=== PATIENT | male | born 1985 | race Two or more races ===

== ENCOUNTER 2019-04-07 16:39 | Inpatient (IN) | payer SELFPAY ==
[~2019-04-07] VITALS: Ht 175.3 cm; Wt 63.1 kg
[2019-04-07] MEDS ORDERED: ASPirin 81 mg TAB PO ONE (17:15)
[2019-04-07] MEDS ORDERED: ACETAMINOPHEN 325 MG TAB PO ONE (17:15)
[2019-04-07 17:59] LABS: Basophils # (auto) 0 uL; Eosinophils # (auto) 0.2 uL; Eosinophils % (auto) 3.5 % (0.0-7.0); Hematocrit 27.5 % (41.0-53.0); Hemoglobin 9.5 g/dL (13.5-17.5); Lymphocytes # (auto) 0.2 uL; Mean Corpuscular Hemoglobin 31.8 pg (28.0-32.0); Mean Corpuscular Hgb Conc. 34.4 g/dL (32.0-36.0); Mean Corpuscular Volume 92.7 fL (80.0-100.0); Monocytes # (auto) 0.5 uL; Monocytes % (auto) 10.6 % (0.0-12.0); Neutrophils # (auto) 3.5 uL; Neutrophils % (auto) 80.9 % (37.0-80.0); Platelet Count (auto) 172 10^3/uL (140-450); Red Blood Cells 2.97 10^6/uL (4.5-5.90); Red Cell Distribution Width 13.7 % (11.8-14.3); White Blood Cell 4.3 10^3/uL (4.4-10.8)
[2019-04-07 18:16] LABS: Albumin 3.8 g/dL (3.4-5.0); Calcium 9.2 mg/dL (8.5-10.1)
[2019-04-07 18:19] LABS: BUN/Creatinine Ratio 4.8; Total Protein 7.5 g/dL (6.4-8.2)
[2019-04-07 18:33] LABS: Bilirubin, Total 0.5 mg/dL (0.2-1.0)
[2019-04-07] MEDS ORDERED: ONDANSETRON HCL 4 MG/2 ML VIAL IV PRN (21:00)
[2019-04-07] MEDS ORDERED: cloNIDine HCL 0.1 MG TAB PO PRN (21:00)
[2019-04-07] MEDS ORDERED: ACETAMINOPHEN 325 MG TAB PO PRN (21:00)
[2019-04-07] MEDS ORDERED: TEMAZEPAM 15 MG CAP PO PRN (21:00)
[2019-04-07] MEDS ORDERED: MORPHINE SULF INJ 2 MG/ML SYRINGE 1ML IV PRN (21:30)
[2019-04-07] MEDS ORDERED: NITROGLYCERIN 0.4 MG SL TAB SL PRN (21:30)
[2019-04-07] MEDS ORDERED: ENOXAPARIN SOD 100 MG/1 ML SYRINGE SC ONE (22:30)
[2019-04-08] MEDS ORDERED: diphenhdrAMINE HCL 50 MG/1 ML VL IV ONE
[2019-04-08 06:08] LABS: Basophils # (auto) 0 uL; Basophils % (auto) 0.9 % (0.0-2.0); Eosinophils # (auto) 0.1 uL; Eosinophils % (auto) 1.4 % (0.0-7.0); Hematocrit 25.3 % (41.0-53.0); Hemoglobin 8.9 g/dL (13.5-17.5); Lymphocytes # (auto) 0.3 uL; Lymphocytes % (auto) 7.3 % (10.0-50.0); Mean Corpuscular Hemoglobin 32.5 pg (28.0-32.0); Mean Corpuscular Hgb Conc. 35.2 g/dL (32.0-36.0); Mean Corpuscular Volume 92.4 fL (80.0-100.0); Monocytes # (auto) 0.5 uL; Monocytes % (auto) 12.6 % (0.0-12.0); Neutrophils # (auto) 3.1 uL; Neutrophils % (auto) 77.8 % (37.0-80.0); Platelet Count (auto) 148 10^3/uL (140-450); Red Blood Cells 2.74 10^6/uL (4.5-5.90); Red Cell Distribution Width 13.7 % (11.8-14.3)
[2019-04-08 06:22] LABS: BUN/Creatinine Ratio 5.1; Potassium 5.4 mmol/L (3.5-5.1)
[2019-04-08 09:00] VITALS: BP 155/99
[2019-04-08] MEDS ORDERED: CALC0.5C (09:07)
[2019-04-08] MEDS ORDERED: CLON0.3D4 (09:07)
[2019-04-08] MEDS ORDERED: DILT180C52 (09:07)
[2019-04-08] MEDS ORDERED: CAR3125T PO (09:41)
[2019-04-08] MEDS ORDERED: ASPirin 81 mg TAB PO SCH (10:00)
[2019-04-08] MEDS ORDERED: SUCR5CHW PO (11:55)
[2019-04-08] MEDS: PANTOPRAZOLE 40 MG TAB PO SCH (11:56)
[2019-04-08] MEDS: SEVELAMER 800 MG TAB PO SCH ×3 (11:57→18:00)
[2019-04-08 13:00] VITALS: BP 163/108
[2019-04-08] MEDS ORDERED: guaiFENesin-DM 100/10mg/5ml SYR PO PRN (14:00)
[2019-04-08] MEDS ORDERED: SODIUM CHLORIDE 0.9% 1,000 ML IV SCH (14:00)
[2019-04-08] MEDS ORDERED: AZITHROMYCIN 500MG/ 250ML 250 ML IV ONE (14:00)
[2019-04-08] MEDS ORDERED: hydrALAZINE HCL 20 MG/ML VL IV PRN (14:00)
[2019-04-08] MEDS ORDERED: cefTRIAXone 1GM/50ML D5W 50 ML IV ONE (14:00)
[2019-04-08] MEDS ORDERED: SODIUM CHLORIDE 0.9% 1,000 ML IV ONE (14:45)
[2019-04-08] MEDS: SODIUM ZIRCONIUM CYCL 10 GM PAK PO SCH ×2 (15:12→22:00)
[2019-04-08 17:00] VITALS: BP 139/87
[2019-04-08 20:00] VITALS: BP 152/93
[2019-04-08 22:00] VITALS: BP 152/93
[2019-04-08] MEDS ORDERED: CARVEDILOL 3.125 MG TAB PO SCH (22:00)
[2019-04-08 22:05] LABS: Urine Bacteria NONE SEEN /hpf (None Seen); Urine Blood 1+ /uL (Negative); Urine Specific Gravity 1.008 (1.001-1.035); Urine WBC <1 /hpf (0 - 3)
[2019-04-08] MEDS: CARVEDILOL 12.5 MG TAB PO SCH (22:40)
[2019-04-08] MEDS: SACUBITRIL-VALSARTAN 24mg/26mg TAB PO SCH (22:41)
[2019-04-09 05:00] VITALS: BP 144/80
[2019-04-09] MEDS: SODIUM ZIRCONIUM CYCL 10 GM PAK PO SCH (06:00)
[2019-04-09 06:37] LABS: Basophils # (auto) 0 uL; Basophils % (auto) 0.9 % (0.0-2.0); Eosinophils # (auto) 0 uL; Eosinophils % (auto) 0.6 % (0.0-7.0); Hematocrit 24.5 % (41.0-53.0); Hemoglobin 8.6 g/dL (13.5-17.5); Lymphocytes # (auto) 0.6 uL; Lymphocytes % (auto) 16.4 % (10.0-50.0); Mean Corpuscular Hemoglobin 32.5 pg (28.0-32.0); Mean Corpuscular Volume 92.8 fL (80.0-100.0); Monocytes # (auto) 0.6 uL; Monocytes % (auto) 16.1 % (0.0-12.0); Neutrophils # (auto) 2.4 uL; Platelet Count (auto) 130 10^3/uL (140-450); Red Blood Cells 2.64 10^6/uL (4.5-5.90); Red Cell Distribution Width 13.5 % (11.8-14.3); White Blood Cell 3.6 10^3/uL (4.4-10.8)
[2019-04-09] MEDS ORDERED: SODIUM CHL 0.9% 1000 ML BAG XX ONE (07:00)
[2019-04-09 07:08] LABS: Calcium 8.8 mg/dL (8.5-10.1); Magnesium 2.9 mg/dL (1.6-2.6); Potassium 5.2 mmol/L (3.5-5.1)
[2019-04-09 07:13] LABS: BUN/Creatinine Ratio 5.2; Phosphorus 6.2 mg/dL (2.5-4.90)
[2019-04-09] MEDS: SEVELAMER 800 MG TAB PO SCH ×3 (08:00→18:34)
[2019-04-09] MEDS ORDERED: ADENOSINE 67 MG in GIVE UN-DILUTED 0 ML IV ONE (09:00)
[2019-04-09 09:28] VITALS: BP 139/79
[2019-04-09 13:00] VITALS: BP 158/91
[2019-04-09] MEDS: SACUBITRIL-VALSARTAN 24mg/26mg TAB PO SCH ×2 (15:20→21:31)
[2019-04-09] MEDS: ASPirin 81 mg TAB PO SCH (15:20)
[2019-04-09] MEDS: cefTRIAXone 1GM/50ML D5W 50 ML IV SCH (15:20)
[2019-04-09] MEDS: CARVEDILOL 12.5 MG TAB PO SCH ×2 (15:21→21:31)
[2019-04-09] MEDS: PANTOPRAZOLE 40 MG TAB PO SCH (15:21)
[2019-04-09] MEDS: AZITHROMYCIN 500MG/ 250ML 250 ML IV SCH (15:21)
[2019-04-09 17:33] VITALS: BP 135/64
[2019-04-09 20:00] VITALS: BP 129/68
[2019-04-09] MEDS ORDERED: EPOETIN ALFA 10,000 UNIT/1 ML VIAL SC ONE (21:00)
[2019-04-09 21:53] VITALS: BP 129/68
[2019-04-10 05:14] VITALS: BP 127/75
[2019-04-10 07:49] LABS: Hematocrit 27.9 % (41.0-53.0); Hemoglobin 9.8 g/dL (13.5-17.5); Mean Corpuscular Hemoglobin 31.9 pg (28.0-32.0); Mean Corpuscular Hgb Conc. 35.1 g/dL (32.0-36.0); Mean Corpuscular Volume 90.8 fL (80.0-100.0); Platelet Count (auto) 153 10^3/uL (140-450); Red Blood Cells 3.08 10^6/uL (4.5-5.90); Red Cell Distribution Width 13.3 % (11.8-14.3); White Blood Cell 2.3 10^3/uL (4.4-10.8)
[2019-04-10 07:54] LABS: BUN/Creatinine Ratio 4.4; Calcium 8.5 mg/dL (8.5-10.1); Potassium 4.8 mmol/L (3.5-5.1)
[2019-04-10 07:59] VITALS: BP 142/87
[2019-04-10 07:59] LABS: Basophils % (manual) 0 (0.0-2.0); Blast Cells 0; Metamyelocytes % 0; Myelocytes % 0; Promyelocytes % 0; Reactive Lymphocytes 0
[2019-04-10 08:40] LABS: Band Neutrophils % (manual) 2; Eosinophils % (manual) 7 (0-7); Lymphocytes % (manual) 30 (10.0-50.0); Monocytes % (manual) 16 (0-12)
[2019-04-10] MEDS: SEVELAMER 800 MG TAB PO SCH ×2 (09:06→12:00)
[2019-04-10] MEDS: cefTRIAXone 1GM/50ML D5W 50 ML IV SCH (09:07)
[2019-04-10] MEDS: AZITHROMYCIN 500MG/ 250ML 250 ML IV SCH (11:02)
[2019-04-10] MEDS: CARVEDILOL 12.5 MG TAB PO SCH (11:02)
[2019-04-10] MEDS: SACUBITRIL-VALSARTAN 24mg/26mg TAB PO SCH (11:02)
[2019-04-10] MEDS: ASPirin 81 mg TAB PO SCH (11:02)
[2019-04-10] MEDS: PANTOPRAZOLE 40 MG TAB PO SCH (11:03)
[2019-04-10 12:36] VITALS: BP 133/91
[2019-04-10] MEDS ORDERED: SODIUM CHL 0.9% 1000 ML BAG XX ONE (13:30)
[2019-04-10] MEDS ORDERED: SACU1TAB PO (15:09)
[2019-04-10] MEDS ORDERED: DOXY-286 PO (15:09)
[2019-04-10] MEDS ORDERED: SEVE800T PO (15:09)
[2019-04-10] MEDS ORDERED: PANT40T PO (15:09)
[2019-04-10] MEDS ORDERED: CAR125T PO (15:09)
[2019-04-10] MEDS ORDERED: ASPI81CH43 PO (15:09)
[2019-04-10 17:00] VITALS: BP 126/74
[2019-04-10] MEDS ORDERED: EPOETIN ALFA 10,000 UNIT/1 ML VIAL SC ONE (21:00)
== END 2019-04-10 17:20 | disposition home or self-care (01) | DRG 871 ==
LOC: ER 16:45 → EDSEX 16:45 → TELE 16:46 → TELE-WESTW 04-08 09:02
PROVIDERS: ADMIT Nurse Practitioner; ATTEND Internal Medicine
PROC: 5A1D70Z Performance of Urinary Filtration, Intermittent, Less than 6 Hours Per Day (ICD-10-PCS; principal; 2019-04-09)
DX: A41.9 Sepsis, unspecified organism (principal); I21.A1 Myocardial infarction type 2; N18.6 End stage renal disease; J96.00 Acute respiratory failure, unspecified whether with hypoxia or hypercapnia; I50.43 Acute on chronic combined systolic (congestive) and diastolic (congestive) heart failure; J18.9 Pneumonia, unspecified organism; I13.2 Hypertensive heart and chronic kidney disease with heart failure and with stage 5 chronic kidney disease, or end stage renal disease; J21.9 Acute bronchiolitis, unspecified; I42.9 Cardiomyopathy, unspecified; D63.1 Anemia in chronic kidney disease; E21.3 Hyperparathyroidism, unspecified; E55.9 Vitamin D deficiency, unspecified; N28.1 Cyst of kidney, acquired; E87.5 Hyperkalemia; I16.0 Hypertensive urgency; I27.20 Pulmonary hypertension, unspecified; Z83.3 Family history of diabetes mellitus; Z99.2 Dependence on renal dialysis; Z87.448 Personal history of other diseases of urinary system
CPT/HCPCS: 36415; 71046; 71250; 74176; 78452; 80048; 80053; 80061; 81001; 82306; 83605; 83735; 83880; 83970; 84100; 84484; 85007; 85025; 85027; 87040; 87070; 87077; 87186; 87205; 87804; 93005; 93017; 93306; 96365; 96367; 96372; G0378; J0153; J0696; J0885; J1642; J2405

== ENCOUNTER 2021-09-08 15:33 | Emergency (ER) | payer MEDICAID ==
[~2021-09-08] VITALS: Ht 175.3 cm; Wt 64.4 kg
[~2021-09-08 15:33] MED LIST: ASPI81CH43 PO; CAR3125T PO; CLON0.3D4; DILT180C52; DOXY-286 PO; PANT40T PO; SACU1TAB PO; SUCR5CHW PO
[2021-09-08 16:13] LABS: Basophils # (auto) 0 10 ^3/uL (0-0.2); Basophils % (auto) 0.5 % (0.0-2.0); Eosinophils # (auto) 0.1 10 ^3/uL (0-0.8); Eosinophils % (auto) 0.9 % (0.0-7.0); Hematocrit 47.5 % (41.0-53.0); Hemoglobin 16.1 g/dL (13.5-17.5); Lymphocytes # (auto) 0.7 10 ^3/uL (0.4-5.4); Lymphocytes % (auto) 8.8 % (10.0-50.0); Mean Corpuscular Hemoglobin 28.9 pg (28.0-32.0); Mean Corpuscular Hgb Conc. 33.8 g/dL (32.0-36.0); Mean Corpuscular Volume 85.5 fL (80.0-100.0); Monocytes # (auto) 0.6 10 ^3/uL (0-1.3); Monocytes % (auto) 7.7 % (0.0-12.0); Neutrophils # (auto) 6.3 10 ^3/uL (1.6-8.6); Neutrophils % (auto) 82.1 % (37.0-80.0); Nucleated Red Blood Cells % 0.1 %; Red Blood Cells 5.55 10^6/uL (4.5-5.90); Red Cell Distribution Width 13.9 % (11.8-14.3); White Blood Cell 7.7 10^3/uL (4.4-10.8)
[2021-09-08 16:18] LABS: Albumin 4.2 g/dL (3.4-5.0); BUN/Creatinine Ratio 15.2; Calcium 10.1 mg/dL (8.5-10.1); Potassium 4.2 mmol/L (3.5-5.1)
[2021-09-08 16:29] LABS: Bilirubin, Total 0.4 mg/dL (0.2-1.0); Total Protein 7.9 g/dL (6.4-8.2)
[2021-09-08 19:13] VITALS: BP 136/93
== END 2021-09-08 19:19 | disposition home or self-care (01) ==
LOC: ER 15:33
DX: R07.89 Other chest pain (principal); Z79.82 Long term (current) use of aspirin; Z79.2 Long term (current) use of antibiotics; Z79.899 Other long term (current) drug therapy; Z91.048 Other nonmedicinal substance allergy status
CPT/HCPCS: 36415; 71045; 80053; 83735; 83880; 84443; 84484; 85025; 93005

== ENCOUNTER 2022-08-11 18:58 | Emergency (ER) | payer MEDICARE, MEDICAID ==
[~2022-08-11] VITALS: Ht 175.3 cm; Wt 62.0 kg
[2022-08-11 20:05] LABS: Eosinophils # (auto) 0.1 10 ^3/uL (0-0.8); Hemoglobin 15.2 g/dL (13.5-17.5); Mean Corpuscular Hemoglobin 30.1 pg (28.0-32.0); Monocytes # (auto) 0.5 10 ^3/uL (0-1.3); Red Blood Cells 5.05 10^6/uL (4.5-5.90)
[2022-08-11 20:09] LABS: Basophils # (auto) 0 10 ^3/uL (0-0.2); Basophils % (auto) 0.4 % (0.0-2.0); Eosinophils % (auto) 0.9 % (0.0-7.0); Hematocrit 43.4 % (41.0-53.0); Lymphocytes % (auto) 10.9 % (10.0-50.0); Mean Corpuscular Volume 85.9 fL (80.0-100.0); Monocytes % (auto) 6.2 % (0.0-12.0); Neutrophils # (auto) 7.2 10 ^3/uL (1.6-8.6); Neutrophils % (auto) 81.6 % (37.0-80.0); Nucleated Red Blood Cells % 0.4 %; Red Cell Distribution Width 13.5 % (11.8-14.3); White Blood Cell 8.8 10^3/uL (4.4-10.8)
[2022-08-11 20:13] LABS: Albumin 4.5 g/dL (3.4-5.0); Calcium 9.5 mg/dL (8.5-10.1); Potassium 4.3 mmol/L (3.5-5.1)
[2022-08-11 20:16] LABS: BUN/Creatinine Ratio 17.2 (10.0-20.0); Bilirubin, Total 0.5 mg/dL (0.2-1.0); Total Protein 7.6 g/dL (6.4-8.2)
[2022-08-11] MEDS ORDERED: SODIUM CHLORIDE 0.9% 1,000 ML IV ONE (22:00)
[2022-08-11 23:00] VITALS: BP 125/87
== END 2022-08-11 23:28 | disposition home or self-care (01) ==
LOC: ER 18:58
DX: R55 Syncope and collapse (principal); R42 Dizziness and giddiness; Z88.8 Allergy status to other drugs, medicaments and biological substances
CPT/HCPCS: 36415; 71045; 80053; 84484; 85025; 93005; 96360; 99285; J7030

== ENCOUNTER 2024-03-17 04:44 | Emergency (ER) | payer MEDICARE, MEDICAID ==
[~2024-03-17] VITALS: Ht 180.3 cm; Wt 100.0 kg
[~2024-03-17 04:44] MED LIST changes: -CAR3125T PO; +CARV-214 PO
[2024-03-17 05:04] LABS: Basophils # (auto) 0 10 ^3/uL (0-0.2); Basophils % (auto) 0.6 % (0.0-2.0); Eosinophils # (auto) 0.1 10 ^3/uL (0-0.8); Eosinophils % (auto) 1.1 % (0.0-7.0); Hematocrit 42.6 % (41.0-53.0); Hemoglobin 14.6 g/dL (13.5-17.5); Lymphocytes # (auto) 0.6 10 ^3/uL (0.4-5.4); Mean Corpuscular Hemoglobin 29.8 pg (28.0-32.0); Mean Corpuscular Hgb Conc. 34.3 g/dL (32.0-36.0); Mean Corpuscular Volume 86.9 fL (80.0-100.0); Monocytes # (auto) 0.9 10 ^3/uL (0-1.3); Monocytes % (auto) 11.5 % (0.0-12.0); Neutrophils # (auto) 6.2 10 ^3/uL (1.6-8.6); Neutrophils % (auto) 78.8 % (37.0-80.0); Platelet Count (auto) 198 10^3/uL (140-450); White Blood Cell 7.9 10^3/uL (4.4-10.8)
--- NOTE | 2024-03-17 05:08 | ED.PDOC ---
HPI Comments 39 year old male brought in by EMS presents to the ED with a chief complaint of chest pain onset today about 1 hour ago. Per EMS, patient's BP was 138/99, all vital signs stable. Patient states he began experiencing LT sided chest pain, non-radiating, sharp pain, rates pain 10/10. Chief Complaint: Chest Pain Time Seen by MD: 05:01 Primary Care Provider: JOAQUINI Reviewed Notes: Medications, Allergies Allergies: Uncoded Allergies: TAPE (Allergy, Unknown, 04/07/19) Home Meds Active Scripts Sacubitril-Valsartan (Entresto 24-26 mg) 1 Tab Tab, 1 TAB PO BID, #60 TAB Prov:JAMIE MARTINEZ MD 04/10/19 Aspirin (Asa) 81 Mg Ch, 81 MG PO DAILY, #30 TAB.CHEW Prov:JAMIE MARTINEZ MD 04/10/19 Pantoprazole Sodium Sesquihydr (Pantoprazole Sodium) 40 Mg Tab, 40 MG PO DAILY, #30 TAB Prov:JAMIE MARTINEZ MD 04/10/19 Doxycycline Hyclate (DOXYCYCLINE HYCLATE) 100 Mg Tab, 1 TAB PO BID, #14 TAB Prov:JAMIE MARTINEZ MD 04/10/19 Reported Medications Polynuclear Iron(III)-Oxyhydro (Velphoro) 500 Mg Chw, 500 MG PO TIDWMEALS, TAB.CHEW 04/08/19 Carvedilol (COREG) 3.125 Mg Tab, PO DAILY, TAB 04/08/19 Clonidine Hydrochloride (Clonidine Hcl) 0.3 Mg/24 Hr Dis 04/08/19 Diltiazem HCl (Cartia Xt) 180 Mg Cap 04/08/19 Information Source: Patient, Emergency Med Personnel Mode of Arrival: EMS Severity: Moderate Timing: Hours Duration: Since onset Prehospital treatment: 12 Lead EKG Location: Chest (L) Radiation: No Radiation Quality: Stabbing Onset: At Rest Cardiac Risk Factors: HTN History of: None Modifying Factors: Nothing Past Medical History PAST MEDICAL HISTORY: HTN Surgical History (Other): kidney transplant Family History Family History: Family hx of DM Social History Smoker: Non-Smoker Alcohol: Denies ETOH Use Drugs: Denies Drug Use Lives In: Home Constitutional: denies: chills, diaphoresis, fatigue, fever, malaise, sweats, weakness, others EENTM: denies: blurred vision, double vision, ear bleeding, ear discharge, ear drainage, ear pain, ear ringing, eye pain, eye redness, hearing loss, mouth pain, mouth swelling, nasal discharge, nose bleeding, nose congestion, nose pain, photophobia, tearing, throat pain, throat swelling, voice changes, others Respiratory: denies: cough, hemoptysis, orthopnea, SOB at rest, shortness of breath, SOB with excertion, stridor, wheezing, others Cardiovascular: reports: chest pain; denies: dizzy spells, diaphoresis, Dyspnea on exertion, edema, irregular heart beat, left arm pain, lightheadedness, palpitations, PND, syncope, others Gastrointestinal: denies: abdomen distended, abdominal pain, blood streaked bowels, constipated, diarrhea, dysphagia, difficulty swallowing, hematemesis, melena, nausea, poor appetite, poor fluid intake, rectal bleeding, rectal pain, vomiting, others Genitourinary: denies: burning, dysuria, flank pain, frequency, hematuria, incontinence, penile discharge, penile sore, pain, testicle pain, testicle swelling, urgency, others Neurological: denies: dizziness, fainting, headache, left sided numbness, left sided weakness, numbness, paresthesia, pre-existing deficit, right sided numbness, right sided weakness, seizure, speech problems, tingling, tremors, weakness, others Musculoskeletal: denies: back pain, gout, joint pain, joint swelling, muscle pain, muscle stiffness, neck pain, others Integumetry: denies: bruises, change in color, change in hair/nails, dryness, laceration, lesions, lumps, rash, wounds, others Allergic/Immunocompromised: denies: Difficulty Healing, Frequent Infections, Hives, Itching, others Hematologic/Lymphatic: denies: anemia, blood clots, easy bleeding, easy bruising, swollen glands, others Endocrine: denies: excessive hunger, excessive sweating, excessive thirst, excessive urination, flushing, intolerance to cold, intolerance to heat, unexplained weight gain, unexplained weight loss, others Psychiatric: denies: anxiety, bipolar disorder, depression, hopeless, panic disorder, schizophrenia, sleepless, suicidal, others All Other Systems: Reviewed and Negative Physical Exam General Appearance: No Apparent Distress, Normal HEENT: Normal ENT Inspection, Pharynx Normal, TMs Normal Neck: Full Range of Motion, Non-Tender, Normal, Normal Inspection Respiratory: Chest Non-Tender, Lungs Clear, No Accessory Muscle Use, No Respiratory Distress, Normal Breath Sounds Cardiovascular: No Edema, No JVD, No Murmur, No Gallop, Normal Peripheral Pulses, Regular Rate/Rhythm Breast Exam: Deferred Gastrointestinal: No Organomegaly, Non Tender, No Pulsatile Mass, Normal Bowel Sounds, Soft Genitalia: Deferred Pelvic: Deferred Rectal: Deferred Extremities: No calf tenderness, Normal capillary refill, Normal inspection, Normal range of motion, Non-tender, No pedal edema Musculoskeletal : Apperance: Normal 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 Was a procedure done?: No CP Differential Dx Differential Diagnosis: Angina, Electrolyte Disorder, Heart Failure, Hypoxia, Pulmonary Embolus, Other Differential Diagnosis: CHF, Other X-Ray, Labs, Meds, VS Vital Signs Date Time Temp Pulse Resp B/P (MAP) Pulse Ox O2 Delivery O2 Flow Rate FiO2 03/17/24 06:25 98.2 88 18 127/88 (101) 95 98.2 03/17/24 05:19 91 15 95 Room Air* 0 21 03/17/24 05:11 99.6 91 15 136/90 (105) 95 99.6 03/17/24 04:48 99.5 90 18 138/99 (112) 96 03/17/24 04:46 89 Lab Test 03/17/24 05:41 03/17/24 04:57 Range/Units Troponin I High Sensitivity 13 13 </=54 ng/L White Blood Count 7.9 4.4-10.8 10^3/uL Red Blood Count 4.90 4.5-5.90 10^6/uL Hemoglobin 14.6 13.5-17.5 g/dL Hematocrit 42.6 41.0-53.0 % Mean Corpuscular Volume 86.9 80.0-100.0 fL Mean Corpuscular Hemoglobin 29.8 28.0-32.0 pg Mean Corpuscular Hemoglobin Concent 34.3 32.0-36.0 g/dL Red Cell Distribution Width 14.0 11.8-14.3 % Platelet Count 198 140-450 10^3/uL Mean Platelet Volume 8.8 6.9-10.8 fL Neutrophils (%) (Auto) 78.8 37.0-80.0 % Lymphocytes (%) (Auto) 8.0 L 10.0-50.0 % Monocytes (%) (Auto) 11.5 0.0-12.0 % Eosinophils (%) (Auto) 1.1 0.0-7.0 % Basophils (%) (Auto) 0.6 0.0-2.0 % Neutrophils # (Auto) 6.2 1.6-8.6 10 ^3/uL Lymphocytes # (Auto) 0.6 0.4-5.4 10 ^3/uL Monocytes # (Auto) 0.9 0-1.3 10 ^3/uL Eosinophils # (Auto) 0.1 0-0.8 10 ^3/uL Basophils # (Auto) 0 0-0.2 10 ^3/uL Nucleated Red Blood Cells 0.0 % Prothrombin Time 10.7 9.3-11.8 sec Prothrombin Time INR 1.01 0.9-1.15 Activated Partial Thromboplast Time 25.8 24.5-34.5 SEC Sodium Level 138 136-145 mmol/L Potassium Level 4.2 3.5-5.1 mmol/L Chloride Level 106 98-107 mmol/L Carbon Dioxide Level 24 20-31 mmol/L Anion Gap 8 5-15 Blood Urea Nitrogen 24 H 9-23 mg/dL Creatinine 1.27 0.700-1.30 mg/dL Glomerular Filtration Rate Calc 73 >90 mL/min BUN/Creatinine Ratio 18.9 10.0-20.0 Serum Glucose 92 74-106 mg/dL Calcium Level 10.6 H 8.7-10.4 mg/dL Magnesium Level 1.9 1.6-2.6 mg/dL Total Bilirubin 0.6 0.2-1.0 mg/dL Aspartate Amino Transferase (AST) 24 13-40 U/L Alanine Aminotransferase (ALT) 52 H 7-40 U/L Alkaline Phosphatase 184 H 46-116 U/L B-Type Natriuretic Peptide 9.51 0-100 pg/mL Total Protein 7.3 5.7-8.2 g/dL Albumin 4.7 3.2-4.8 g/dL Time of 1ST Reevaluation: 05:31 Reevaluation 1ST: Unchanged Patient Education/Counseling: Diagnosis, Treatment, Prognosis Family Education/Counseling: No Family Present Additional Information I reviewed the following notes from patient's past medical encounters: The following tests were ordered, and results were reviewed by me:EKG, EKG, EKG, CBC, CMP, BNP, PTPTT, XY CHEST, MAGNESIUM, TROP, TROP, TROP Additional Information was gathered from interviewing the following independent historians: EMS I reviewed and agreed with the following test results read by other providers: XY CHEST I discussed treatment and results with medical personnel and: patient Departure 1 Departure Time of Disposition: 05:40 Impression: Primary Impression: Atypical chest pain Disposition: HOME / SELF CARE / HOMELESS Condition: Stable Discharged With: Self Critical Care Note Critical Care Time?: No Stability Stability form required: No Heart Score Heart Score: Heart Score Response (Comments) Value History Slightly Suspicious 0 EKG Normal 0 Age <45 0 Risk Factors 1 or 2 risk factors 1 Troponin Normal limit 0 Total 1 I personally scribed for RAJANI BAKER MD ([email or web address]) on 03/17/24 at 05:08. Electronically submitted by Kaye Reynaga ([email or web address]). I personally scribed for RAJANI BAKER MD ([email or web address]) on 03/17/24 at 05:09. Electronically submitted by Kaye Reynaga ([email or web address]). RAJANI BAKER MD Mar 17, 2024 05:08
[2024-03-17 05:19] VITALS: PULSE 91; RESP 15; O2SAT 95
[2024-03-17 05:23] LABS: Alanine Aminotransferase 52 U/L (7-40); Albumin 4.7 g/dL (3.2-4.8); Alkaline Phosphatase 184 U/L (46-116); Anion Gap 8 (5-15); Aspartate Aminotransferase 24 U/L (13-40); BUN/Creatinine Ratio 18.9 (10.0-20.0); Bilirubin, Total 0.6 mg/dL (0.2-1.0); Blood Urea Nitrogen 24 mg/dL (9-23); Calcium 10.6 mg/dL (8.7-10.4); Carbon Dioxide 24 mmol/L (20-31); Chloride 106 mmol/L (98-107); Glucose 92 mg/dL (74-106); Magnesium 1.9 mg/dL (1.6-2.6); Potassium 4.2 mmol/L (3.5-5.1); Sodium 138 mmol/L (136-145); Total Protein 7.3 g/dL (5.7-8.2)
[2024-03-17 05:29] LABS: INR 1.01 (0.9-1.15); Partial Thromboplastin Time 25.8 SEC (24.5-34.5); Prothrombin Time 10.7 sec (9.3-11.8)
[2024-03-17 06:25] VITALS: BP 127/88; PULSE 88; RESP 18; TEMP 98.2; O2SAT 95
--- NOTE | 2024-03-18 12:45 | ECG ---
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
== END 2024-03-17 06:32 | disposition home or self-care (01) ==
LOC: ER 04:44 → EDBD 04:44 → ER 06:22
DX: R07.89 Other chest pain (principal); I10 Essential (primary) hypertension; Z88.8 Allergy status to other drugs, medicaments and biological substances; Z79.899 Other long term (current) drug therapy; Z79.84 Long term (current) use of oral hypoglycemic drugs; Z98.890 Other specified postprocedural states
CPT/HCPCS: 36415; 80053; 83735; 83880; 84484; 85025; 85610; 85730; 93005

== ENCOUNTER 2024-08-20 22:10 | Inpatient (IN) | payer MEDICARE, MEDICAID ==
[~2024-08-20] VITALS: Ht 175.3 cm; Wt 68.4 kg
[2024-08-20 23:30] VITALS: PULSE 107; RESP 16; O2SAT 94
[2024-08-20] MEDS: SODIUM CHLORIDE 0.9% 1,000 ML IV ONE (23:37)
[2024-08-20] MEDS: FAMOTIDINE (10MG/ML) 2ML VL IV ONE (23:41)
[2024-08-20] MEDS: ONDANSETRON HCL 4 MG/2 ML VIAL IV ONE (23:41)
[2024-08-21 00:02] LABS: Basophils # (auto) 0 10 ^3/uL (0-0.2); Basophils % (auto) 0.3 % (0.0-2.0); Eosinophils # (auto) 0 10 ^3/uL (0-0.8); Eosinophils % (auto) 0.4 % (0.0-7.0); Hematocrit 45.4 % (41.0-53.0); Hemoglobin 15.7 g/dL (13.5-17.5); Lymphocytes # (auto) 0.4 10 ^3/uL (0.4-5.4); Lymphocytes % (auto) 3.9 % (10.0-50.0); Mean Corpuscular Hemoglobin 29.4 pg (28.0-32.0); Mean Corpuscular Hgb Conc. 34.6 g/dL (32.0-36.0); Monocytes # (auto) 0.8 10 ^3/uL (0-1.3); Monocytes % (auto) 7.4 % (0.0-12.0); Neutrophils # (auto) 9.6 10 ^3/uL (1.6-8.6); Nucleated Red Blood Cells % 0.1 %; Platelet Count (auto) 220 10^3/uL (140-450); Red Blood Cells 5.34 10^6/uL (4.5-5.90); Red Cell Distribution Width 13.9 % (11.8-14.3); White Blood Cell 10.9 10^3/uL (4.4-10.8)
[2024-08-21 00:18] LABS: Anion Gap 11 (5-15); Aspartate Aminotransferase 24 U/L (13-40); BUN/Creatinine Ratio 15.9 (10.0-20.0); Blood Urea Nitrogen 21 mg/dL (9-23); Calcium 10.1 mg/dL (8.7-10.4); Carbon Dioxide 24 mmol/L (20-31); Lipase 38 U/L (12-53); Potassium 4.7 mmol/L (3.5-5.1); Total Protein 7.7 g/dL (5.7-8.2)
[2024-08-21 00:19] LABS: Bilirubin, Total 0.7 mg/dL (0.2-1.0)
[2024-08-21 00:27] LABS: Alanine Aminotransferase 53 U/L (7-40); Albumin 4.9 g/dL (3.2-4.8); Alkaline Phosphatase 171 U/L (46-116); Chloride 111 mmol/L (98-107); Glucose 121 mg/dL (74-106); Sodium 146 mmol/L (136-145)
[2024-08-21] MEDS: ONDANSETRON HCL 4 MG/2 ML VIAL IV ONE (00:45)
--- NOTE | 2024-08-21 00:46 | ED.PDOC ---
History of Present Illness HPI Comments 39-year-old man with a history of kidney transplant several years ago presents with 2 days of multiple episodes of nonbilious nonbloody emesis as well as multiple episodes of watery brown diarrhea. Patient feels very weak and that he is going to pass out. Patient is concerned that he is unable to tolerate his medications for his kidney transplant. Chief Complaint: Nausea/Vomiting Time Seen by MD: 23:00 Primary Care Provider: UCLoreta Allergies: Uncoded Allergies: TAPE (Allergy, Unknown, 04/07/19) Home Meds Active Scripts Sacubitril-Valsartan (Entresto 24-26 mg) 1 Tab Tab, 1 TAB PO BID, #60 TAB Prov:JAMIE MARTINEZ MD 04/10/19 Aspirin (Asa) 81 Mg Ch, 81 MG PO DAILY, #30 TAB.CHEW Prov:JAMIE MARTINEZ MD 04/10/19 Pantoprazole Sodium Sesquihydr (Pantoprazole Sodium) 40 Mg Tab, 40 MG PO DAILY, #30 TAB Prov:JAMIE MARTINEZ MD 04/10/19 Doxycycline Hyclate (DOXYCYCLINE HYCLATE) 100 Mg Tab, 1 TAB PO BID, #14 TAB Prov:JMAIE MARTINEZ MD 04/10/19 Reported Medications Polynuclear Iron(III)-Oxyhydro (Velphoro) 500 Mg Chw, 500 MG PO TIDWMEALS, TAB.CHEW 04/08/19 Carvedilol (COREG) 3.125 Mg Tab, PO DAILY, TAB 04/08/19 Clonidine Hydrochloride (Clonidine Hcl) 0.3 Mg/24 Hr Dis 04/08/19 Diltiazem HCl (Cartia Xt) 180 Mg Cap 04/08/19 Mode of Arrival: Wheelchair Past Medical History PAST MEDICAL HISTORY: HTN Family History Family History: Family hx of DM Social History Smoker: Non-Smoker Alcohol: Denies ETOH Use Drugs: Denies Drug Use Lives In: Home All Other Systems: Reviewed and Negative Physical Exam General Appearance: Moderate Distress HEENT: Pharynx Normal Neck: Normal Inspection Respiratory: No Respiratory Distress Cardiovascular: Tachycardia Breast Exam: Deferred Gastrointestinal: Non Tender Genitalia: Deferred Pelvic: Deferred Rectal: Deferred Extremities: No pedal edema Neurologic: No Motor Deficits Cerebellar Function: NOT DONE Reflexes: NOT DONE Skin: Other (Dry mucous membranes and pallor) Lymphatic: NOT DONE Was a procedure done? Was a procedure done?: No Differential Dx Considerations may include: Dehydration, electrolyte abnormalities, infectious etiology, viral syndrome X-Ray, Labs, Meds, VS Vital Signs Date Time Temp Pulse Resp B/P (MAP) Pulse Ox O2 Delivery O2 Flow Rate FiO2 08/20/24 23:30 107 16 94 Room Air* 0 21 08/20/24 23:24 99.4 107 16 136/95 (109) 94 99.4 08/20/24 22:10 99.6 118 16 128/91 (103) 97 99.6 Lab Test 08/20/24 23:52 08/20/24 23:35 Range/Units White Blood Count 10.9 H 4.4-10.8 10^3/uL Red Blood Count 5.34 4.5-5.90 10^6/uL Hemoglobin 15.7 13.5-17.5 g/dL Hematocrit 45.4 41.0-53.0 % Mean Corpuscular Volume 85.0 80.0-100.0 fL Mean Corpuscular Hemoglobin 29.4 28.0-32.0 pg Mean Corpuscular Hemoglobin Concent 34.6 32.0-36.0 g/dL Red Cell Distribution Width 13.9 11.8-14.3 % Platelet Count 220 140-450 10^3/uL Mean Platelet Volume 8.4 6.9-10.8 fL Neutrophils (%) (Auto) 88.0 H 37.0-80.0 % Lymphocytes (%) (Auto) 3.9 L 10.0-50.0 % Monocytes (%) (Auto) 7.4 0.0-12.0 % Eosinophils (%) (Auto) 0.4 0.0-7.0 % Basophils (%) (Auto) 0.3 0.0-2.0 % Neutrophils # (Auto) 9.6 H 1.6-8.6 10 ^3/uL Lymphocytes # (Auto) 0.4 0.4-5.4 10 ^3/uL Monocytes # (Auto) 0.8 0-1.3 10 ^3/uL Eosinophils # (Auto) 0 0-0.8 10 ^3/uL Basophils # (Auto) 0 0-0.2 10 ^3/uL Nucleated Red Blood Cells 0.1 % Sodium Level 146 H 136-145 mmol/L Potassium Level 4.7 3.5-5.1 mmol/L Chloride Level 111 H 98-107 mmol/L Carbon Dioxide Level 24 20-31 mmol/L Anion Gap 11 5-15 Blood Urea Nitrogen 21 9-23 mg/dL Creatinine 1.32 H 0.700-1.30 mg/dL Glomerular Filtration Rate Calc 70 >90 mL/min BUN/Creatinine Ratio 15.9 10.0-20.0 Serum Glucose 121 H 74-106 mg/dL Lactic Acid Level 1.8 0.4-2.0 mmol/L Calcium Level 10.1 8.7-10.4 mg/dL Total Bilirubin 0.7 0.2-1.0 mg/dL Aspartate Amino Transferase (AST) 24 13-40 U/L Alanine Aminotransferase (ALT) 53 H 7-40 U/L Alkaline Phosphatase 171 H 46-116 U/L Total Protein 7.7 5.7-8.2 g/dL Albumin 4.9 H 3.2-4.8 g/dL Lipase 38 12-53 U/L POC Glucose 132 H 70-106 mg/dl Current Medications Medications (Trade) Dose Ordered Sig/Radha Route Start Time Stop Time Status Last Admin Sodium Chloride 1,000 ml @ 1,000 mls/hr Q1H ONCE IV 08/20/24 23:45 08/21/24 00:44 08/20/24 23:37 Ondansetron HCl (Zofran) 4 mg ONCE ONCE IV 08/20/24 23:45 08/20/24 23:46 DC 08/20/24 23:41 Famotidine (Pepcid Injection) 20 mg ONCE ONCE IV 08/20/24 23:45 08/20/24 23:46 DC 08/20/24 23:41 Time of 1ST Reevaluation: 00:44 Reevaluation 1ST: Improved Patient Education/Counseling: Diagnosis, Treatment Family Education/Counseling: No Family Present Sepsis Sepsis Reasesment Focused Exam Orders: Laboratory Tests 08/20/24 23:52: Lactic Acid Level 1.8 Departure 1 Departure Time of Disposition: 00:44 (Patient with severe dehydration given patient is high-risk of decompensation from his kidney transplant we will rehydrate patient admit patient for further work up and expert consultation) Impression: Primary Impression: Severe dehydration Additional Impressions: Electrolyte abnormality Epigastric pain Kidney transplant recipient Disposition: ADMITTED INPATIENT Admit to: Med Surg Condition: Serious Critical Care Note Critical Care Time?: Yes Critical care comment: Intractable nausea and vomiting Authorized and Performed by: Carmita Arroyo MD Total critical care time: Approximately 34 minutes Due to a high probability of clinically significant, life threatening deterioration, the patient required my highest level of preparedness to intervene emergently and I personally spent this critical care time directly and personally managing the patient. This critical care time included obtaining a history; examining the patient; pulse oximetry; ordering and review of studies; arranging urgent treatment with development of a management plan; evaluation of patient's response to treatment; frequent reassessment; and, discussions with other providers. This critical care time was performed to assess and manage the high probability of imminent, life-threatening deterioration that could result in multi-organ failure. It was exclusive of separately billable procedures and treating other patients and teaching time. Please see my other sections and the rest of the note for further information on patient assessment and treatment. Stability Stability form required: No Heart Score Heart Score: Heart Score Response (Comments) Value History N/A 0 EKG N/A 0 Age N/A 0 Risk Factors N/A 0 Troponin N/A 0 Total 0 CARMITA ARROYO MD Aug 21, 2024 00:46
[2024-08-21 00:55] LABS: Urine Bacteria None Seen /hpf (None Seen)
--- NOTE | 2024-08-21 00:55 | DVH ---
CHEST RADIOGRAPH Indication: epigastric pain Technique: Single frontal view of the chest was obtained Comparison: XY CHEST XRAY 1 VIEW on DOS: 08/11/22, XY CHEST PORTABLE on DOS: 08/11/22, CHEST XRAY 1 VIE W on DOS: 09/08/21 Findings/ IMPRESSION: Low lung volumes with bronchovascular crowding. Mild cardiomegaly. No focal consolidation or pneumot horax. No pleural effusions.
[2024-08-21 01:25] LABS: Urine Blood Negative /uL (Negative); Urine Clarity Clear (Clear); Urine Color Yellow (Yellow); Urine Mucus FEW (None Seen); Urine Protein, UAD Negative (Negative); Urine Specific Gravity 1.025 (1.001-1.035); Urine Squamous Epithelial Cell None Seen /hpf (<5); Urine Urobilinogen Normal (Negative); Urine WBC < 1 /HPF (0-3)
[2024-08-21] MEDS: LACTATED RINGER'S 500 ML IV ONE (02:33)
[2024-08-21] MEDS: metroNIDAZOLE 500MG/100ML 100 ML IV ONE (02:34)
[2024-08-21] MEDS: ACETAMINOPHEN 325 MG TAB PO PRN (03:07)
[2024-08-21] MEDS: KETOROLAC TROMETH 30 MG/ML 1ML VIAL IV ONE (03:20)
--- NOTE | 2024-08-21 05:54 | DVHHPRES ---
History of Present Illness Resident Creating Document: SERGIO WILDE RESIDENT History of Present Illness This is a 39-year-old male with a past medical history of kidney transplant in May 2020, history of end-stage renal disease hypertension, dyslipidemia, heart failure with reduced ejection fraction presented to the ED with a chief complaint of intractable nausea vomiting and diarrhea. Patient reported he was apparently well until 1 day before presentation and yesterday in the morning around 4:00 a.m. he started to have nausea, vomiting and diarrhea. Patient had multiple episodes of vomiting which was nonbilious nonbloody and diarrhea which was also nonbloody. He reports his to be sick with similar symptoms at home and reportedly there were many people sick with similar symptoms at his 's work place. Patient reports abdominal pain periumbilical, no rebound tenderness, soft abdomen. Patient also reported mild chest pressure but denied any shortness of breath. Past medical history: As per HPI Past surgical history: Kidney transplant in May 2020 Social history: Patient lives with the family and denies smoking, alcohol, drug use Home medications: Lisinopril 2.5 mg, carvedilol 3.125 b.i.d., prednisone 5 mg daily, tacrolimus 1 b.i.d., mycophenolic acid 180 mg, simvastatin Review of Systems Review of Systems Seen and examined at the bedside Reports the last episode of vomiting and diarrhea to happen when he arrived to the hospital about 4 hours ago Mild abdominal pain Allergies: Uncoded Allergies: TAPE (Allergy, Unknown, 04/07/19) Medications Current Medications Medications Dose Ordered Sig/Radha Route Start Time Stop Time Status Last Admin Dose Admin Metronidazole 100 ml @ 100 mls/hr Q8HR IV 08/21/24 14:00 Aspirin 81 mg DAILY PO 08/21/24 10:00 Tacrolimus 1 mg BID PO 08/21/24 10:00 Prednisone 5 mg DAILY PO 08/21/24 10:00 Acetaminophen 650 mg Q6HP PRN PO 08/21/24 03:00 08/21/24 03:07 650 MG Exam Vital Signs Vital Signs Date Time Temp Pulse Resp B/P (MAP) Pulse Ox O2 Delivery O2 Flow Rate FiO2 08/21/24 04:00 98.7 08/21/24 03:00 98 20 132/88 (103) 98 08/20/24 23:30 Room Air* 0 21 Exam Gen - no pallor, no icterus, no cyanosis, no clubbing, no LAD, no edema . Skin - Patients skin is warm and dry. HEENT - normocephalic, atraumatic, moist mucous membranes. Neck - full ROM, no LAD, no JVD Pulmonary - B/L equal breath sounds, no crackles, no wheezing, no stridor. cardiovascular - regular S1,S2 heard, no added sounds, no murmurs heard. peripheral pulses normal radial 2+, pedal 2+. GI - soft abdomen with mild tenderness to palpation around the periumbilical ar ea, no guarding or rebound tenderness. no hepatospleenomegaly. Bowel sounds normoactive Neurological - Patient is A/O X 3 . Bilateral upper extremity strength 5/5, bilateral lower extremity strength 5/5, no facial droop, normal speech, no tremor, no sensory deficiets. Labs/Xrays Labs Test 08/21/24 00:52 08/20/24 23:52 08/20/24 23:35 Range/Units Urine Color Yellow Yellow Urine Clarity Clear Clear Urine pH 6.0 5.0-9.0 Urine Specific [place] 1.025 1.001-1.035 Urine Protein Negative Negative Urine Ketones Trace Negative Urine Blood Negative Negative /uL Urine Nitrite Negative Negative Urine Bilirubin Negative Negative Urine Urobilinogen Normal Negative mg/dL Urine Leukocyte Esterase Negative Negative /uL Urine RBC 1 0 - 3 /hpf Urine Microscopic WBC < 1 0-3 /HPF Urine Squamous Epithelial Cells None seen <5 /hpf Urine Bacteria None seen None Seen /hpf Urine Mucus Few None Seen Urine Glucose Normal Normal mg/dL White Blood Count 10.9 H 4.4-10.8 10^3/uL Red Blood Count 5.34 4.5-5.90 10^6/uL Hemoglobin 15.7 13.5-17.5 g/dL Hematocrit 45.4 41.0-53.0 % Mean Corpuscular Volume 85.0 80.0-100.0 fL Mean Corpuscular Hemoglobin 29.4 28.0-32.0 pg Mean Corpuscular Hemoglobin Concent 34.6 32.0-36.0 g/dL Red Cell Distribution Width 13.9 11.8-14.3 % Platelet Count 220 140-450 10^3/uL Mean Platelet Volume 8.4 6.9-10.8 fL Neutrophils (%) (Auto) 88.0 H 37.0-80.0 % Lymphocytes (%) (Auto) 3.9 L 10.0-50.0 % Monocytes (%) (Auto) 7.4 0.0-12.0 % Eosinophils (%) (Auto) 0.4 0.0-7.0 % Basophils (%) (Auto) 0.3 0.0-2.0 % Neutrophils # (Auto) 9.6 H 1.6-8.6 10 ^3/uL Lymphocytes # (Auto) 0.4 0.4-5.4 10 ^3/uL Monocytes # (Auto) 0.8 0-1.3 10 ^3/uL Eosinophils # (Auto) 0 0-0.8 10 ^3/uL Basophils # (Auto) 0 0-0.2 10 ^3/uL Nucleated Red Blood Cells 0.1 % Sodium Level 146 H 136-145 mmol/L Potassium Level 4.7 3.5-5.1 mmol/L Chloride Level 111 H 98-107 mmol/L Carbon Dioxide Level 24 20-31 mmol/L Anion Gap 11 5-15 Blood Urea Nitrogen 21 9-23 mg/dL Creatinine 1.32 H 0.700-1.30 mg/dL Glomerular Filtration Rate Calc 70 >90 mL/min BUN/Creatinine Ratio 15.9 10.0-20.0 Serum Glucose 121 H 74-106 mg/dL Lactic Acid Level 1.8 0.4-2.0 mmol/L Calcium Level 10.1 8.7-10.4 mg/dL Total Bilirubin 0.7 0.2-1.0 mg/dL Aspartate Amino Transferase (AST) 24 13-40 U/L Alanine Aminotransferase (ALT) 53 H 7-40 U/L Alkaline Phosphatase 171 H 46-116 U/L Total Protein 7.7 5.7-8.2 g/dL Albumin 4.9 H 3.2-4.8 g/dL Lipase 38 12-53 U/L POC Glucose 132 H 70-106 mg/dl Assessment/Plan Assessment/Plan Intractable vomiting and diarrhea Acute gastroenteritis likely viral versus bacterial Sirs likely due to above - IV fluids - IV metronidazole - stool C diff and culture pending - abdominal ultrasound pending - clear liquid diet SHADY likely due to VMN Hypernatremia likely due to dehydration History of end-stage renal disease S/p kidney transplant in 2020 - IV fluids - monitor electrolytes and kidney function - continued on tacrolimus, prednisolone History of heart failure with reduced ejection fraction, exacerbation - echocardiogram pending - on carvedilol 3.125 mg b.i.d., lisinopril held due to soft blood pressure and SHADY PUD prophylaxis: Protonix Goals of care discussed with the patient for over 27 minutes. Full code Plan discussed with Dr. Madsen Plan discussed with: Patient My Orders Orders - SERGIO WILDE Procedure Category Date Status Time Electrocardigram EKG 08/21/24 Logged 01:47 Admit ADMIT 08/21/24 Transmitted 01:52 Oxygen By Nasal RT 08/21/24 Transmitted Cannula 01:52 Stat Ekg For Chest LAURI 08/21/24 In Process Pain 01:52 Metronidazole PHA 08/21/24 In Process 500mg/100ml (Flagyl 14:00 Clostridium Difficile ISIS 08/21/24 Logged Toxin 01:52 Stool Bacterial ISIS 08/21/24 Logged Culture 01:52 Stool Wbc LAB 08/21/24 Logged 01:52 Encourage Adequate LAURI 08/21/24 In Process Fluid Intak 01:52 Clear Liq Diet DIET 08/21/24 Transmitted Breakfast Echo 2d Mode Cardiac US 08/21/24 Logged DOP 01:52 Abdomen Complete US 08/21/24 Logged Sonogram 01:52 Aspirin Tablet PHA 08/21/24 In Process 10:00 Tacrolimus (Prograf) PHA 08/21/24 In Process 10:00 Prednisone Tablet PHA 08/21/24 In Process 10:00 Complete Blood Count LAB 08/22/24 Verified 04:00 Comprehensive LAB 08/22/24 Verified Metabolic Panel 04:00 Acetaminophen Tablet PHA 08/21/24 In Process (Tylenol Tablet) 03:00 Date of Service: Aug 21, 2024 Billing Provider: CRISTINA MADSEN MD Common Visit Codes: 08049-ABNVZKF INP/OBS CARE (HIGH) Secondary Visit Codes: 11503-[id number] CARE PLAN 30 MINUTES SERGIO WILDE RESIDENT Aug 21, 2024 05:54
[2024-08-21] MEDS: PANTOPRAZOLE 40 MG TAB PO SCH (06:12)
[2024-08-21] MEDS: D5W/SOD CHL 0.45% 500 ML IV ONE (06:15)
[2024-08-21 06:41] LABS: Basophils # (auto) 0 10 ^3/uL (0-0.2); Basophils % (auto) 0.3 % (0.0-2.0); Eosinophils # (auto) 0 10 ^3/uL (0-0.8); Eosinophils % (auto) 0.3 % (0.0-7.0); Hemoglobin 13.9 g/dL (13.5-17.5); Lymphocytes # (auto) 0.5 10 ^3/uL (0.4-5.4); Lymphocytes % (auto) 5.6 % (10.0-50.0); Mean Corpuscular Hemoglobin 29.5 pg (28.0-32.0); Mean Corpuscular Hgb Conc. 34.7 g/dL (32.0-36.0); Mean Corpuscular Volume 85.1 fL (80.0-100.0); Monocytes # (auto) 0.7 10 ^3/uL (0-1.3); Monocytes % (auto) 8.3 % (0.0-12.0); Neutrophils # (auto) 7.1 10 ^3/uL (1.6-8.6); Neutrophils % (auto) 85.5 % (37.0-80.0); Platelet Count (auto) 207 10^3/uL (140-450); Red Blood Cells 4.71 10^6/uL (4.5-5.90); Red Cell Distribution Width 13.8 % (11.8-14.3); White Blood Cell 8.3 10^3/uL (4.4-10.8)
[2024-08-21 06:55] LABS: Anion Gap 8 (5-15); Aspartate Aminotransferase 20 U/L (13-40); BUN/Creatinine Ratio 16.7 (10.0-20.0); Blood Urea Nitrogen 20 mg/dL (9-23); Calcium 9.9 mg/dL (8.7-10.4); Carbon Dioxide 23 mmol/L (20-31); Potassium 4.1 mmol/L (3.5-5.1); Sodium 142 mmol/L (136-145); Total Protein 6.7 g/dL (5.7-8.2)
[2024-08-21 06:56] LABS: Albumin 4.3 g/dL (3.2-4.8); Bilirubin, Total 0.7 mg/dL (0.2-1.0)
[2024-08-21 06:57] LABS: Alanine Aminotransferase 45 U/L (7-40); Alkaline Phosphatase 152 U/L (46-116); Chloride 111 mmol/L (98-107); Glucose 108 mg/dL (74-106)
--- NOTE | 2024-08-21 07:10 | ECG ---
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
[2024-08-21 07:30] VITALS: PULSE 74; RESP 14; O2SAT 99
--- NOTE | 2024-08-21 07:47 | DVH ---
EXAM: US Abdomen Complete CLINICAL INDICATION: N/V/D, abd pain TECHNIQUE: Real-time ultrasound of the abdomen with image documentation. COMPARISON: None FINDINGS: LIVER: Liver measures up to 15.4 cm. Fatty infiltration of the liver. No intrahepatic bile duct d ilation. GALLBLADDER: Negative Puga's sign was reported by the metal pattern maker. No gallstones. COMMON BILE DUCT: CBD not visualized. PANCREAS: Unremarkable as visualized. KIDNEYS: Right kidney measures up to 11.9 cm. [place] kidneys not visualized. Transplant kidney me asures up to 11.9 cm. SPLEEN: Unremarkable. No splenomegaly. AORTA: Unremarkable. No aneurysm. INFERIOR VENA CAVA: Unremarkable. OTHER FINDINGS: . . . IMPRESSION: Fatty infiltration of the liver.
[2024-08-21] MEDS: TACROLIMUS 1 MG CAP PO SCH (09:57)
[2024-08-21] MEDS: predniSONE 5 MG TAB PO SCH (09:57)
[2024-08-21] MEDS: CARVEDILOL 3.125 MG TAB PO SCH (09:57)
[2024-08-21] MEDS: ASPirin 81 mg TAB PO SCH (09:57)
[2024-08-21] MEDS ORDERED: MYCOPHENOLATE 500 MG TAB PO SCH (10:00)
[2024-08-21] MEDS: SODIUM CHLORIDE 0.9% 1,000 ML IV ONE (10:20)
--- NOTE | 2024-08-21 11:58 | DVHPNRES ---
Progress Note Date Seen: Aug 21, 2024 Resident Creating Document: VERNELL CONTEH RESIDENT Has the PT tested + for MRSA If YES, has PT been informed?: No Medical Necessity Reason Pt with a Central, PICC or Fol: No Subjective Review of Systems This is a 39-year-old male with a past medical history of kidney transplant in May 2020, history of end-stage renal disease hypertension, dyslipidemia, heart failure with reduced ejection fraction presented to the ED with a chief complaint of intractable nausea vomiting and diarrhea. Patient reported he was apparently well until 1 day before presentation and yesterday in the morning around 4:00 a.m. he started to have nausea, vomiting and diarrhea. Patient had multiple episodes of vomiting which was nonbilious nonbloody and diarrhea which was also nonbloody. He reports his to be sick with similar symptoms at home and reportedly there were many people sick with similar symptoms at his 's work place. Patient reports abdominal pain periumbilical, no rebound tenderness, soft abdomen. Patient also reported mild chest pressure but denied any shortness of breath. Past medical history: As per HPI Past surgical history: Kidney transplant in May 2020 Social history: Patient lives with the family and denies smoking, alcohol, drug use Home medications: Lisinopril 2.5 mg, carvedilol 3.125 b.i.d., prednisone 5 mg daily, tacrolimus 1 b.i.d., mycophenolic acid 180 mg, simvastatin 08/21/2024: two episodes of diarrhea, continue with dry mucous. 1 lt ordered, possible parasite gastroenteritis: foam and brownish/yellow stool, pending stool studies, continue flagyl and transplant medication Objective vital signs Vital Sign Date Time Temp Pulse Resp B/P (MAP) Pulse Ox O2 Delivery O2 Flow Rate FiO2 08/21/24 07:30 98.4 74 14 117/84 (95) 99 98.4 08/21/24 07:30 Room Air* 0 21 Total Intake and Output 08/20/24 08/20/24 08/21/24 15:00 23:00 07:00 Intake Total 1600 ml Balance 1600 ml medications Current Medications Medications Dose Ordered Sig/Radha Route Start Time Stop Time Status Last Admin Dose Admin Metronidazole 100 ml @ 100 mls/hr Q8HR IV 08/21/24 14:00 Aspirin 81 mg DAILY PO 08/21/24 10:00 Tacrolimus 1 mg BID PO 08/21/24 10:00 Prednisone 5 mg DAILY PO 08/21/24 10:00 Acetaminophen 650 mg Q6HP PRN PO 08/21/24 03:00 08/21/24 03:07 650 MG Carvedilol 3.125 mg Q12HR PO 08/21/24 10:00 Pantoprazole Sodium 40 mg DAILY@0600 PO 08/21/24 06:00 08/21/24 06:12 40 MG Mycophenolate Mofetil 1,000 mg BID PO 08/21/24 10:00 Hold Examination Gen - no pallor, no icterus, no cyanosis, no clubbing, no LAD, no edema . Skin - Patients skin is warm and dry. HEENT - normocephalic, atraumatic, moist mucous membranes. Neck - full ROM, no LAD, no JVD Pulmonary - B/L equal breath sounds, no crackles, no wheezing, no stridor. cardiovascular - regular S1,S2 heard, no added sounds, no murmurs heard. peripheral pulses normal radial 2+, pedal 2+. GI - soft abdomen with mild tenderness to palpation around the periumbilical area, no guarding or rebound tenderness. no hepatospleenomegaly. Bowel sounds normoactive Neurological - Patient is A/O X 3 . Bilateral upper extremity strength 5/5, bilateral lower extremity strength 5/5, no facial droop, normal speech, no tremor, no sensory deficiets. laboratory and microbiology Laboratory Tests 08/21/24 06:18 Test 08/21/24 06:18 Range/Units Serum Glucose 108 H 74-106 mg/dL Problem List/Assessment/Plan Problem List/Assessment/Plan Intractable vomiting and diarrhea Acute gastroenteritis likely parasite Sirs likely due to above - IV fluids - IV metronidazole - stool C diff and culture pending - abdominal ultrasound pending - clear liquid diet SHADY likely due to VMN Hypernatremia likely due to dehydration History of end-stage renal disease S/p kidney transplant in 2020 - IV fluids - monitor electrolytes and kidney function - continued on tacrolimus, prednisolone History of heart failure with reduced ejection fraction, exacerbation - echocardiogram pending - on carvedilol 3.125 mg b.i.d., lisinopril held due to soft blood pressure and SHADY PUD prophylaxis: Protonix Goals of care discussed with the patient for over 27 minutes. Full code Plan discussed with Dr. Ocampo Plan discussed with: Patient, Other My Orders My Orders Orders - VERNELL CONTEH RESIDENT Procedure Category Date Status Time Mycophenolate Mofetil PHA 08/21/24 In Process (Cellcept) 10:00 Pharmacy [facility] 08/21/24 In Process Clarification: 23:59 Ova & Parasite Exam ISIS 08/21/24 Uncollected 11:24 Stool Bacterial ISIS 08/21/24 Uncollected Culture 11:24 Stool Wbc LAB 08/21/24 Logged 11:24 Date of Service: Aug 21, 2024 Billing Provider: TED OCAMPO MD Common Visit Codes: [id number] INP/OBS CARE(HIGH) VERNELL CONTEH RESIDENT Aug 21, 2024 11:58 TED OCAMPO MD Aug 21, 2024 13:49
[2024-08-21] MEDS: metroNIDAZOLE 500MG/100ML 100 ML IV SCH (14:22)
--- NOTE | 2024-08-21 15:39 | DVHSR ---
APPROVED REPORT EXAM: Two-dimensional and M-mode echocardiogram with Doppler and color Doppler. Blood Pressure: 112/67 mmHg INDICATION CHF, SOB RISK FACTORS Height: 69, Weight: 168 DIMENSIONS LVDd4.8 (3.8-5.7cm)LA (2D)4.1 (1.9-4.0cm)Aortic Root3.9 (2.0-3.7cm) LVDs3.3 (2.5-4.0cm)LA (MM) (1.9-4.0cm)Aortic Cusp Exc2.2 (1.5-2.0cm) EF (%) 60.0 (55-70%)Rt. Atrium4.5 (1.9-4.0cm)Asc. Aorta cm IVSd1.4 (0.7-1.1cm)RV (D) (1.8-2.4cm) PWd1.1 (0.7-1.1cm) Mitral Valve MitralMitral Stenosis E wave0.60m/sMV Mean GR.mmHg A wave0.57m/sMV Peak GR.mmHg E/A ratio1.12D MVAcm2 DECEL [id number] 1/2 Hvlo05gd IVRTmsDop MVA2.90cm2 Aortic Valve Aortic ValveAortic Stenosis V11.08m/Trevor Mean GR.4mmHg V21.30m/Trevor Peak GR.7mmHg LVOT Diameter2.4 (1.8-2.4cm)Doppler AVA3.76cm2 AI P 1/2 Uqse764.80ms Pulmonic Valve V20.91m/s Tricuspid Valve TR Velocity2.30m/s [id number] Conclusion lvef 60% by visual estimate normal rv function left atrium enlarged no severe valve abnormaliteis noted trace to mild Aortic regurg
[2024-08-21] MEDS: MYCOPHENOLIC ACID 180 MG PO SCH ×2 (16:12→21:20)
[2024-08-21 19:30] VITALS: PULSE 73; RESP 19; O2SAT 92; O2SAT 99
[2024-08-21] MEDS ORDERED: TACR1CAP4 PO (23:09)
[2024-08-21] MEDS ORDERED: MYCO1TAB PO (23:12)
[2024-08-21] MEDS ORDERED: LISI2.5T47 PO (23:18)
[2024-08-21 23:25] VITALS: BP 139/91; PULSE 67; RESP 18; TEMP 99; O2SAT 97
[2024-08-22] VITALS (8 sets, daily range): BP systolic 103–128; BP diastolic 65–88; PULSE 58–73; RESP 17–19; TEMP 97.9–99.9; O2SAT 95–99
[2024-08-22 05:29] LABS: Hematocrit 40.5 % (41.0-53.0); Hemoglobin 13.9 g/dL (13.5-17.5); Mean Corpuscular Hemoglobin 29.3 pg (28.0-32.0); Mean Corpuscular Hgb Conc. 34.4 g/dL (32.0-36.0); Mean Corpuscular Volume 85.4 fL (80.0-100.0); Platelet Count (auto) 192 10^3/uL (140-450); Red Blood Cells 4.74 10^6/uL (4.5-5.90); Red Cell Distribution Width 13.5 % (11.8-14.3); White Blood Cell 3.8 10^3/uL (4.4-10.8)
[2024-08-22 05:35] LABS: Basophils % (manual) 0 (0.0-2.0); Blast Cells 0; Metamyelocytes % 0; Myelocytes % 0; Promyelocytes % 0
[2024-08-22 06:14] LABS: Anion Gap 8 (5-15); BUN/Creatinine Ratio 9.4 (10.0-20.0); Blood Urea Nitrogen 11 mg/dL (9-23); Carbon Dioxide 24 mmol/L (20-31); Glucose 89 mg/dL (74-106); Potassium 3.9 mmol/L (3.5-5.1); Sodium 141 mmol/L (136-145); Total Protein 6.7 g/dL (5.7-8.2)
[2024-08-22 06:15] LABS: Albumin 4.2 g/dL (3.2-4.8); Aspartate Aminotransferase 19 U/L (13-40); Bilirubin, Total 0.6 mg/dL (0.2-1.0)
[2024-08-22 06:16] LABS: Alanine Aminotransferase 40 U/L (7-40); Alkaline Phosphatase 142 U/L (46-116); Calcium 10.5 mg/dL (8.7-10.4); Chloride 109 mmol/L (98-107)
[2024-08-22 06:45] LABS: Band Neutrophils % (manual) 1; Eosinophils % (manual) 3 (0-7); Lymphocytes % (manual) 13 (10.0-50.0); Monocytes % (manual) 13 (0-12); Platelet Estimate Adequate; Reactive Lymphocytes 3
--- NOTE | 2024-08-22 13:28 | DVHPNRES ---
Progress Note Date Seen: Aug 22, 2024 Resident Creating Document: VERNELL CONTEH RESIDENT Has the PT tested + for MRSA If YES, has PT been informed?: No Medical Necessity Reason Pt with a Central, PICC or Fol: No Subjective Review of Systems This is a 39-year-old male with a past medical history of kidney transplant in May 2020, history of end-stage renal disease hypertension, dyslipidemia, heart failure with reduced ejection fraction presented to the ED with a chief complaint of intractable nausea vomiting and diarrhea. Patient reported he was apparently well until 1 day before presentation and yesterday in the morning around 4:00 a.m. he started to have nausea, vomiting and diarrhea. Patient had multiple episodes of vomiting which was nonbilious nonbloody and diarrhea which was also nonbloody. He reports his to be sick with similar symptoms at home and reportedly there were many people sick with similar symptoms at his 's work place. Patient reports abdominal pain periumbilical, no rebound tenderness, soft abdomen. Patient also reported mild chest pressure but denied any shortness of breath. Past medical history: As per HPI Past surgical history: Kidney transplant in May 2020 Social history: Patient lives with the family and denies smoking, alcohol, drug use Home medications: Lisinopril 2.5 mg, carvedilol 3.125 b.i.d., prednisone 5 mg daily, tacrolimus 1 b.i.d., mycophenolic acid 180 mg, simvastatin 08/21/2024: two episodes of diarrhea, continue with dry mucous. 1 lt ordered, possible parasite gastroenteritis: foam and brownish/yellow stool, pending stool studies, continue flagyl and transplant medication 08/22/2024: ten episodes of diarrhea, his fluid status is better than yesterday but due to the concern of hypovolemia in a transplant kidney, patient should stay another day Objective vital signs Vital Sign Date Time Temp Pulse Resp B/P (MAP) Pulse Ox O2 Delivery O2 Flow Rate FiO2 08/22/24 13:04 99.9 61 18 105/65 (78) 99 99.9 08/22/24 08:00 Room Air* 0 21 Total Intake and Output 08/21/24 08/21/24 08/22/24 15:00 23:00 07:00 Intake Total 300 ml 500 ml Balance 300 ml 500 ml medications Current Medications Medications Dose Ordered Sig/Radha Route Start Time Stop Time Status Last Admin Dose Admin Metronidazole 100 ml @ 100 mls/hr Q8HR IV 08/21/24 14:00 08/22/24 05:16 100 MLS/HR Aspirin 81 mg DAILY PO 08/21/24 10:00 Tacrolimus 1 mg BID PO 08/21/24 10:00 08/22/24 09:19 1 MG Prednisone 5 mg DAILY PO 08/21/24 10:00 08/22/24 09:20 5 MG Acetaminophen 650 mg Q6HP PRN PO 08/21/24 03:00 08/21/24 03:07 650 MG Carvedilol 3.125 mg Q12HR PO 08/21/24 10:00 08/22/24 09:20 3.125 MG Pantoprazole Sodium 40 mg DAILY@0600 PO 08/21/24 06:00 08/22/24 05:16 40 MG Patient Own Medication 1 Q12H PO 08/21/24 21:00 08/21/24 21:20 1 Examination Gen - no pallor, no icterus, no cyanosis, no clubbing, no LAD, no edema . Skin - Patients skin is warm and dry. HEENT - normocephalic, atraumatic, moist mucous membranes. Neck - full ROM, no LAD, no JVD Pulmonary - B/L equal breath sounds, no crackles, no wheezing, no stridor. cardiovascular - regular S1,S2 heard, no added sounds, no murmurs heard. peripheral pulses normal radial 2+, pedal 2+. GI - soft abdomen with mild tenderness to palpation around the periumbilical area, no guarding or rebound tenderness. no hepatospleenomegaly. Bowel sounds normoactive Neurological - Patient is A/O X 3 . Bilateral upper extremity strength 5/5, bilateral lower extremity strength 5/5, no facial droop, normal speech, no tremor, no sensory deficiets. laboratory and microbiology Laboratory Tests 08/22/24 05:04 Test 08/22/24 05:04 Range/Units Serum Glucose 89 74-106 mg/dL Microbiology Date/Time Source Procedure Growth Status 08/21/24 11:38 Stool Stool Culture - Preliminary Resulted 08/21/24 11:38 Stool Shiga Toxin I & II - Final Resulted 08/21/24 11:38 Stool Clostridium difficile Toxin Assay Pending Resulted Problem List/Assessment/Plan Problem List/Assessment/Plan Intractable vomiting and diarrhea Acute gastroenteritis likely parasite Sirs likely due to above - IV fluids given - IV metronidazole - stool C diff, parasites and culture pending - abdominal ultrasound: fatty liver - clear liquid diet SHADY likely due to VMN Hypernatremia likely due to dehydration History of end-stage renal disease S/p kidney transplant in 2020 - IV fluids given - monitor electrolytes and kidney function - continued on tacrolimus, prednisolone and mycophenolate History of heart failure with reduced ejection fraction, - echocardiogram: normal - on carvedilol 3.125 mg b.i.d., lisinopril held due to soft blood pressure and SHADY PUD prophylaxis: Protonix Goals of care discussed with the patient for over 27 minutes. Full code Plan discussed with Dr. Ocampo Plan discussed with: Patient, Other (rn) My Orders My Orders Orders - VERNELL CONTEH Procedure Category Date Status Time Patients Own PHA 08/21/24 In Process Medication 21:00 Date of Service: Aug 21, 2024 Billing Provider: TED OCAMPO MD Common Visit Codes: [id number] INP/OBS CARE(HIGH) VERNELL CONTEH RESIDENT Aug 22, 2024 13:28 TED OCAMPO MD Aug 22, 2024 20:12
[2024-08-23] VITALS (7 sets, daily range): BP systolic 110–125; BP diastolic 65–87; PULSE 58–73; RESP 17–20; TEMP 97.8–98.6; O2SAT 95–98
[2024-08-23 07:29] LABS: Alanine Aminotransferase 35 U/L (7-40); Anion Gap 11 (5-15); Calcium 10.1 mg/dL (8.7-10.4); Carbon Dioxide 23 mmol/L (20-31); Potassium 3.8 mmol/L (3.5-5.1); Sodium 143 mmol/L (136-145)
[2024-08-23 07:30] LABS: BUN/Creatinine Ratio 7.9 (10.0-20.0); Blood Urea Nitrogen 9 mg/dL (9-23); Glucose 89 mg/dL (74-106)
[2024-08-23 07:31] LABS: Albumin 4.2 g/dL (3.2-4.8); Aspartate Aminotransferase 19 U/L (13-40); Total Protein 6.5 g/dL (5.7-8.2)
[2024-08-23 07:32] LABS: Alkaline Phosphatase 132 U/L (46-116); Bilirubin, Total 0.5 mg/dL (0.2-1.0); Chloride 109 mmol/L (98-107)
--- NOTE | 2024-08-23 16:44 | DVHPN2 ---
Subjective In bed resting talked to him about creat a little better more soft stool and no diarrhea Reviewed: H&P, Labs Changes from previous H/P or p: No Changes Objective Vitals Vital Signs Date Time Temp Pulse Resp B/P (MAP) Pulse Ox O2 Delivery O2 Flow Rate FiO2 08/23/24 16:35 98.6 58 18 125/77 (93) 98 98.6 08/23/24 08:00 Room Air* 0 21 Intake/Output Intake and Output 08/23/24 07:00 Intake Total 3410 ml Balance 3410 ml Intake Oral 3110 ml IV Total 300 ml # Voids 11 # Bowel Movements 6 General Appearance: Alert, Oriented X3 Lungs: Clear to auscultation Cardiovascular: Regular rate, Normal S1, Normal S2 Medications Current Medications Medications Dose Ordered Sig/Radha Route Start Time Stop Time Status Last Admin Dose Admin Metronidazole 100 ml @ 100 mls/hr Q8HR IV 08/21/24 14:00 08/23/24 14:10 100 MLS/HR Aspirin 81 mg DAILY PO 08/21/24 10:00 Tacrolimus 1 mg BID PO 08/21/24 10:00 08/23/24 09:06 1 MG Prednisone 5 mg DAILY PO 08/21/24 10:00 08/23/24 09:06 5 MG Acetaminophen 650 mg Q6HP PRN PO 08/21/24 03:00 08/21/24 03:07 650 MG Carvedilol 3.125 mg Q12HR PO 08/21/24 10:00 08/23/24 09:07 3.125 MG Pantoprazole Sodium 40 mg DAILY@0600 PO 08/21/24 06:00 08/23/24 05:14 40 MG Patient Own Medication 1 Q12H PO 08/21/24 21:00 08/21/24 21:20 1 Laboratory Results Laboratory Tests 08/22/24 05:04 08/23/24 06:31 Chemistry Test 08/23/24 06:31 Albumin 4.2 g/dL (3.2-4.8) Calcium Level 10.1 mg/dL (8.7-10.4) Total Protein 6.5 g/dL (5.7-8.2) LFT Test 08/23/24 06:31 Alanine Aminotransferase (ALT) 35 U/L (7-40) Alkaline Phosphatase 132 U/L (46-116) H Aspartate Amino Transferase (AST) 19 U/L (13-40) Total Bilirubin 0.5 mg/dL (0.2-1.0) Urinalysis Test 08/21/24 00:52 Urine Color Yellow (Yellow) Urine Clarity Clear (Clear) Urine pH 6.0 (5.0-9.0) Urine Specific [place] 1.025 (1.001-1.035) Urine Protein Negative (Negative) Urine Ketones Trace (Negative) Urine Blood Negative /uL (Negative) Urine Nitrite Negative (Negative) Urine Bilirubin Negative (Negative) Urine Urobilinogen Normal mg/dL (Negative) Urine Leukocyte Esterase Negative /uL (Negative) Urine RBC 1 /hpf (0 - 3) Urine Microscopic WBC < 1 /HPF (0-3) Urine Squamous Epithelial Cells None seen /hpf (<5) Urine Bacteria None seen /hpf (None Seen) Urine Mucus Few (None Seen) Urine Glucose Normal mg/dL (Normal) Microbiology Microbiology Date/Time Source Procedure Growth Status 08/21/24 11:38 Stool Stool Culture - Preliminary Resulted 08/21/24 11:38 Stool Shiga Toxin I & II - Final Resulted 08/21/24 11:38 Stool Clostridium difficile Toxin Assay - Final Resulted Assessment/Plan Assessment/Plan Intractable vomiting and diarrhea Acute gastroenteritis likely parasite Sirs likely due to above - IV fluids given - IV metronidazole - stool C diff, parasites and culture pending - abdominal ultrasound: fatty liver - clear liquid diet>advance SHADY likely due to VMN Hypernatremia likely due to dehydration History of end-stage renal disease S/p kidney transplant in 2020 - IV fluids given - monitor electrolytes and kidney function - continued on tacrolimus, prednisolone and mycophenolate - Creat better and back to normal today 1.14 History of heart failure with reduced ejection fraction, - echocardiogram: normal - on carvedilol 3.125 mg b.i.d., lisinopril held due to soft blood pressure and SHADY PUD prophylaxis: Protonix Plan discussed with: Patient Date of Service: Aug 23, 2024 Billing Provider: STANISLAW GONZALEZ MD Common Visit Codes: [id number] INP/OBS CARE(HIGH) STANISLAW GONZALEZ MD Aug 23, 2024 16:44
[2024-08-24 01:00] VITALS: BP 129/70; PULSE 74; RESP 17; O2SAT 99
[2024-08-24 05:00] VITALS: BP 109/68; PULSE 65; RESP 17; TEMP 97.9; O2SAT 96
[2024-08-24 07:58] VITALS: PULSE 65; RESP 17; O2SAT 96
[2024-08-24] MEDS ORDERED: METR-344 PO (08:30)
[2024-08-24 09:00] VITALS: BP 114/81; PULSE 63; RESP 18; TEMP 98.3; O2SAT 96
--- NOTE | 2024-08-24 11:49 | DVHDSRES ---
Discharge Summary Date of Admission Resident Creating Document: VERNELL CONTEH RESIDENT Aug 21, 2024 at 01:52 Date of Discharge: Aug 24, 2024 Admitting Diagnosis Intractable vomiting and diarrhea Acute gastroenteritis likely parasite Sepsis likely due to above Labs/Diagnostic Data: Laboratory Results Test 08/23/24 06:31 08/22/24 05:04 08/21/24 11:38 08/21/24 06:18 Sodium Level 143 mmol/L (136-145) Potassium Level 3.8 mmol/L (3.5-5.1) Chloride Level 109 mmol/L (98-107) Carbon Dioxide Level 23 mmol/L (20-31) Anion Gap 11 (5-15) Blood Urea Nitrogen 9 mg/dL (9-23) Creatinine 1.14 mg/dL (0.700-1.30) Glomerular Filtration Rate Calc 83 mL/min (>90) BUN/Creatinine Ratio 7.9 (10.0-20.0) Serum Glucose 89 mg/dL (74-106) Calcium Level 10.1 mg/dL (8.7-10.4) Total Bilirubin 0.5 mg/dL (0.2-1.0) Aspartate Amino Transferase (AST) 19 U/L (13-40) Alanine Aminotransferase (ALT) 35 U/L (7-40) Alkaline Phosphatase 132 U/L (46-116) Total Protein 6.5 g/dL (5.7-8.2) Albumin 4.2 g/dL (3.2-4.8) White Blood Count 3.8 10^3/uL (4.4-10.8) Red Blood Count 4.74 10^6/uL (4.5-5.90) Hemoglobin 13.9 g/dL (13.5-17.5) Hematocrit 40.5 % (41.0-53.0) Mean Corpuscular Volume 85.4 fL (80.0-100.0) Mean Corpuscular Hemoglobin 29.3 pg (28.0-32.0) Mean Corpuscular Hemoglobin Concent 34.4 g/dL (32.0-36.0) Red Cell Distribution Width 13.5 % (11.8-14.3) Platelet Count 192 10^3/uL (140-450) Mean Platelet Volume 8.4 fL (6.9-10.8) Neutrophils (%) (Auto) % (37.0-80.0) Lymphocytes (%) (Auto) % (10.0-50.0) Monocytes (%) (Auto) % (0.0-12.0) Basophils (%) (Auto) % (0.0-2.0) Neutrophils # (Auto) 10 ^3/uL (1.6-8.6) Lymphocytes # (Auto) 10 ^3/uL (0.4-5.4) Monocytes # (Auto) 10 ^3/uL (0-1.3) Differential Total Cells Counted 100.0 (100) Neutrophils % (Manual) 67 (37.0-80.0) Band Neutrophils % (Manual) 1 Lymphocytes % (Manual) 13 (10.0-50.0) Monocytes % (Manual) 13 (0-12) Eosinophils % (Manual) 3 (0-7) Basophils % (Manual) 0 (0.0-2.0) Metamyelocytes % (manual) 0 Myelocytes % (Manual) 0 Promyelocytes % (Manual) 0 Blast Cells % (Manual) 0 Nucleated Red Blood Cells 2.0 % Reactive Lymphocytes 3 Platelet Estimate Adequate Stool for White Cells None seen Eosinophils (%) (Auto) 0.3 % (0.0-7.0) Eosinophils # (Auto) 0 10 ^3/uL (0-0.8) Basophils # (Auto) 0 10 ^3/uL (0-0.2) Hemoglobin A1c 5.6 % A1C (<5.7) B-Type Natriuretic Peptide 40.44 pg/mL (0-100) Test 08/21/24 00:52 08/20/24 23:52 08/20/24 23:35 Urine Color Yellow (Yellow) Urine Clarity Clear (Clear) Urine pH 6.0 (5.0-9.0) Urine Specific [place] 1.025 (1.001-1.035) Urine Protein Negative (Negative) Urine Ketones Trace (Negative) Urine Blood Negative /uL (Negative) Urine Nitrite Negative (Negative) Urine Bilirubin Negative (Negative) Urine Urobilinogen Normal mg/dL (Negative) Urine Leukocyte Esterase Negative /uL (Negative) Urine RBC 1 /hpf (0 - 3) Urine Microscopic WBC < 1 /HPF (0-3) Urine Squamous Epithelial Cells None seen /hpf (<5) Urine Bacteria None seen /hpf (None Seen) Urine Mucus Few (None Seen) Urine Glucose Normal mg/dL (Normal) Lactic Acid Level 1.8 mmol/L (0.4-2.0) Lipase 38 U/L (12-53) POC Glucose 132 mg/dl (70-106) Other Laboratory Tests 08/23/24 06:31 08/22/24 05:04 Brief Hx & Hospital Course: A 39-year-old male with PMHx of kidney transplant (May 2020), ESRD, hypertension, dyslipidemia, and HFrEF, was admitted with intractable vomiting and diarrhea. Patient had 10 episodes of diarrhea and multiple episodes of nonbloody vomiting, suspected to be due to infectious gastroenteritis, possibly parasitic. Stool studies including C. difficile and parasitology were sent, all negative. He received IV fluids and IV metronidazole. Abdominal ultrasound showed fatty liver. Course was complicated by transient SHADY likely secondary to volume depletion and hypernatremia, both of which improved with IV hydration. Home lisinopril was held due to low blood pressure and SHADY. Home immunosuppressants (tacrolimus, prednisone, mycophenolate) were continued. Echocardiogram was normal. Patient improved clinically with no further episodes of vomiting or diarrhea, and tolerated clear liquid diet, later successfully advanced. He remained hemodynamically stable and was discharged in stable condition. Follow-up: PCP and transplant nephrology as outpatient. Continue home medications and continue metronidazole treatment for 2 weeks Case discussed with Dr Brown Full code Operations or Procedures EXAM: US Abdomen Complete CLINICAL INDICATION: N/V/D, abd pain TECHNIQUE: Real-time ultrasound of the abdomen with image documentation. COMPARISON: None FINDINGS: LIVER: Liver measures up to 15.4 cm. Fatty infiltration of the liver. No intrahepatic bile duct dilation. GALLBLADDER: Negative Puga's sign was reported by the heat treat operator. No gallstones. COMMON BILE DUCT: CBD not visualized. PANCREAS: Unremarkable as visualized. KIDNEYS: Right kidney measures up to 11.9 cm. [place] kidneys not visualized. Transplant kidney measures up to 11.9 cm. SPLEEN: Unremarkable. No splenomegaly. AORTA: Unremarkable. No aneurysm. INFERIOR VENA CAVA: Unremarkable. OTHER FINDINGS: . . . IMPRESSION: Fatty infiltration of the liver. Condition at Discharge: Stable Final Diagnosis/Problems List Intractable vomiting and diarrhea Acute gastroenteritis likely parasite Sepsis likely due to above SHADY likely due to VMN resolved Hypernatremia likely due to dehydration History of end-stage renal disease S/p kidney transplant in 2020 History of heart failure with reduced ejection fraction, Discharge Disposition: Home Discharge Instruct/Medications Diet: Renal Activity: No Restrictions, As Tolerated Follow Up/Referral: fu with pcp Medications: see prescription Discharge Statement: "Patient was advised to return to the ER or call 911 if any headaches, dizziness, shortness of breath, chest pain, abdominal pain, bleeding, fevers, or worsening of medical condition. Patient was counseled about treatment plan, medications, possible side effects, patientverbalized understanding. All questions were answered to the best of my ability. This discharge took greater then 30 minutes in planning, reviewing documentation, counseling the patient, and discussing with other team members." ASSESSMENT ASSESSMENT Assessment Date of Service: Aug 24, 2024 Billing Provider: KALLIE BROWN MD Common Visit Codes: [id number] DISCH DAY >30min VERNELL CONTEH RESIDENT Aug 24, 2024 11:49 KALLIE BROWN MD Aug 25, 2024 22:37
[2024-08-24 12:41] VITALS: BP 114/81; PULSE 63; RESP 18; TEMP 98.3; O2SAT 96
[2024-08-24 13:17] VITALS: BP 121/89; PULSE 76; RESP 18; TEMP 98.8; O2SAT 95
== END 2024-08-24 13:20 | disposition home or self-care (01) | DRG 871 ==
LOC: ER 22:10 → OVERFLOW 08-21 01:52 → EAST 08-21 23:25
PROVIDERS: ADMIT Student in an Organized Health Care Education/Training Program; ATTEND Student in an Organized Health Care Education/Training Program
DX: A41.9 Sepsis, unspecified organism (principal); N17.0 Acute kidney failure with tubular necrosis; E87.0 Hyperosmolality and hypernatremia; I13.2 Hypertensive heart and chronic kidney disease with heart failure and with stage 5 chronic kidney disease, or end stage renal disease; I50.22 Chronic systolic (congestive) heart failure; T86.19 Other complication of kidney transplant; Z94.0 Kidney transplant status; E86.0 Dehydration; B82.9 Intestinal parasitism, unspecified; K52.9 Noninfective gastroenteritis and colitis, unspecified; K76.0 Fatty (change of) liver, not elsewhere classified; Z91.048 Other nonmedicinal substance allergy status; Z79.899 Other long term (current) drug therapy; Z83.3 Family history of diabetes mellitus; Y84.8 Other medical procedures as the cause of abnormal reaction of the patient, or of later complication, without mention of misadventure at the time of the procedure; Y92.89 Other specified places as the place of occurrence of the external cause; Z79.82 Long term (current) use of aspirin
CPT/HCPCS: 36415; 71045; 76700; 80053; 81001; 82962; 83036; 83605; 83690; 83880; 85007; 85025; 85027; 85048; 87045; 87427; 87493; 93005; 93306; 96361; 96374; 96375; 99291; G0378; J2405; J3490; J7507; J7517